=== PATIENT | male | born 1975 | race Caucasian/White ===

== ENCOUNTER 2021-02-26 23:08 | Emergency (ER) | payer OTHER ==
[~2021-02-26] VITALS: Ht 170.2 cm; Wt 77.0 kg
[2021-02-26 23:10] VITALS: BP 150/103
[2021-02-27] MEDS ORDERED: ACETAMINOPHEN 325MG TABLET PO ONE
[2021-02-27] MEDS ORDERED: BACITRACIN ZINC OINT UDPKT TOP ONE
[2021-02-27] MEDS ORDERED: LIDOCAINE HCL/EPINEPHRINE 1%-EPI 1:100,000 20 ML VIAL INFIL ONE
[2021-02-27] MEDS ORDERED: TETANUS, DIPHTHERIA, PERTUSSIS VAC/PF 0.5ML (>7YR OLD) IM ONE
[2021-02-27] MEDS ORDERED: BO1 TP (01:27)
== END 2021-02-27 01:56 | disposition home or self-care (01) ==
LOC: ER 23:08
DX: S01.01XA Laceration without foreign body of scalp, initial encounter (principal); S06.9X0A Unspecified intracranial injury without loss of consciousness, initial encounter; W22.8XXA Striking against or struck by other objects, initial encounter; Y93.89 Activity, other specified; Y92.89 Other specified places as the place of occurrence of the external cause; Y99.8 Other external cause status
CPT/HCPCS: 70450; 90471; 90715; 99284; J3490; Z7610